=== PATIENT | female | born 1970 | race Caucasian/White ===

== ENCOUNTER → 2018-02-24 | Outpatient (CLI) | payer BC ==
[~2018-02-24] MED LIST: OXYACE5T PO; PROM25 PO; RANI150 PO; [UNRECOGNIZED DRUG - OTHER]; [UNRECOGNIZED DRUG - REMARK]
== END ==
LOC: LAB 15:15 → LAB SHORT 15:15
DX: N39.0 Urinary tract infection, site not specified (principal)
CPT/HCPCS: 87086

== ENCOUNTER → 2019-05-28 | Outpatient (CLI) | payer BC ==
[2019-05-29 13:41] LABS: Stool Occult Bld Immuno 1 Negative (NEGATIVE)
== END | disposition home or self-care (01) ==
LOC: LAB 11:41 → LAB SHORT 11:41 → LAB FUT 04-25 08:15
PROVIDERS: Family Medicine
DX: Z12.11 Encounter for screening for malignant neoplasm of colon (principal); E11.9 Type 2 diabetes mellitus without complications; I10 Essential (primary) hypertension; R79.9 Abnormal finding of blood chemistry, unspecified; R10.13 Epigastric pain
CPT/HCPCS: 87338; G0328

== ENCOUNTER 2021-12-26 22:27 | Observation (INO) | payer BC ==
[~2021-12-26] VITALS: Ht 170.2 cm; Wt 127.7 kg
[2021-12-26 23:10] LABS: BASOPHILS PERCENT AUTO 1 % (0-2); EOSINOPHILS ABSOLUTE AUTO 0.26 K/mm3 (0.00-0.68); EOSINOPHILS PERCENT AUTO 2 % (0-6); Hematocrit 48.6 % (33.0-51.0); Hemoglobin 16.5 g/dL (11.5-16.0); IMMATURE GRAN ABSOLUTE AUTO 0.06 K/mm3 (0.00-0.10); IMMATURE GRAN PERCENT AUTO 0 % (0-1); LYMPHOCYTES ABSOLUTE AUTO 4.94 K/mm3 (0.84-5.20); LYMPHOCYTES PERCENT AUTO 34 % (21-46); MONOCYTES ABSOLUTE AUTO 1.07 K/mm3 (0.16-1.47); MONOCYTES PERCENT AUTO 7 % (4-13); Mean Corpuscular HGB 30.5 pg (26.0-34.0); Mean Corpuscular Volume 90 fL (80-100); Mean Platelet Volume 9.3 fL (9.1-12.4); NEUTROPHILS ABSOLUTE AUTO 7.96 K/mm3 (1.96-9.15); NEUTROPHILS PERCENT AUTO 55 % (41-73); Platelet Count 360 K/mm3 (150-400); RDW Standard Deviation 42.8 fL (35.1-46.3); Red Blood Cell Count 5.41 M/mm3 (3.80-5.20); White Blood Cell Count 14.39 K/mm3 (4.00-11.30)
[2021-12-26 23:28] LABS: Magnesium, Blood 2.4 mg/dL (1.6-2.4)
[2021-12-26 23:39] LABS: Alanine Aminotransfer (ALT/SGP 31 U/L (12-78); Albumin, Blood 3.8 g/dL (3.4-5.0); Alk Phos 79 U/L (50-136); Anion Gap 7 mmol/L (6-16); Aspartate Aminotrans (AST/SGOT 16 U/L (12-37); Bilirubin, Direct <0.1 mg/dL (0.0-0.3); Bilirubin, Indirect Unable to Calculate mg/dL (0.1-0.7); Bilirubin, Total 0.3 mg/dL (0.1-1.0); Blood Urea Nitrogen 16 mg/dL (8-24); Bun/Creatinine Ratio 26.8 (12.0-20.0); CO2, Blood 21 mmol/L (21-32); Calcium, Blood 9.4 mg/dL (8.5-10.1); Chloride, Blood 109 mmol/L (98-108); Glomerular Filtration Rate 107 (60-); Glucose, Blood 165 mg/dL (70-99); Potassium, Blood 3.9 mmol/L (3.5-5.5); Sodium, Blood 137 mmol/L (136-145); Total Protein, Blood 7.8 g/dL (6.4-8.2)
[2021-12-27 03:25] LABS: Source, Urine Clean Catch
[2021-12-27 03:27] LABS: Appearance, Urine Clear (Clear); Bilirubin, Urine Neg (Neg); Blood, Urine Neg (Neg); Color, Urine Yellow (P-Yellow); Glucose Qualitative, Urine 4+ (Neg); Ketones, Urine Neg (Neg); Leukocyte Esterase, Urine Neg (Neg); Nitrite, Urine Neg (Neg); Protein, Urine Neg (Neg); Urobilinogen, Urine NORM (Normal)
[2021-12-27 07:33] LABS: CHOL/HDL RATIO 4.2; Cholesterol 174 mg/dL (50-200); HDL Cholesterol 41 mg/dL (>39); LDL/HDL RATIO 2.2; Low Density Lipoprotein Chol 90 mg/dL (0-110); Triglycerides 216 mg/dL (30-160); Very Low Density Lipoprot Chol 43 mg/dL (6-32)
[2021-12-27] MEDS ORDERED: PRAVASTATIN SOD10 MG PO (08:57)
[2021-12-27] MEDS ORDERED: TOPI25 PO (08:57)
[2021-12-27] MEDS ORDERED: EZET10 PO (08:59)
[2021-12-27] MEDS ORDERED: JARDIANCE25 MG PO (08:59)
[2021-12-27] MEDS ORDERED: Amaryl2 MG PO (09:00)
[2021-12-27] MEDS ORDERED: Amlodipine Bes2.5 MG PO (09:02)
--- NOTE | 2021-12-27 17:40 | NUR ---
SHIFT SUMMARY PT A&O X4 AND IN PLEASENT MOOD. SBA. HEADACHE MEDICATED PER EMAR. TOLERATING CLEAR LIQUID DIET, DENIES N/V, ABD PAIN-PLAN TO CONTINUE TO ADVANCE DAVID. VSS. CALL LIGHT W/IN REACH.
--- NOTE | 2021-12-28 05:29 | NUR ---
SHIFT SUMMARY NOC: PT SLEPT ALL NIGHT. USES CPAP AT NIGHT. PT STATES PAIN TO ABDOMEN IS MANAGEABLE. NO PRN MEDICATIONS GIVEN TONIGHT. NO ACUTE EVENTS.
[2021-12-28 05:35] LABS: BASOPHILS ABSOLUTE AUTO 0.07 K/mm3 (0.00-0.23); BASOPHILS PERCENT AUTO 1 % (0-2); EOSINOPHILS ABSOLUTE AUTO 0.21 K/mm3 (0.00-0.68); EOSINOPHILS PERCENT AUTO 2 % (0-6); Hematocrit 47.4 % (33.0-51.0); Hemoglobin 15.4 g/dL (11.5-16.0); IMMATURE GRAN ABSOLUTE AUTO 0.04 K/mm3 (0.00-0.10); IMMATURE GRAN PERCENT AUTO 0 % (0-1); LYMPHOCYTES ABSOLUTE AUTO 3.39 K/mm3 (0.84-5.20); LYMPHOCYTES PERCENT AUTO 35 % (21-46); MONOCYTES ABSOLUTE AUTO 0.71 K/mm3 (0.16-1.47); MONOCYTES PERCENT AUTO 7 % (4-13); Mean Corpuscular HGB 30.4 pg (26.0-34.0); Mean Corpuscular HGB Conc 32.5 g/dL (31.5-36.5); Mean Corpuscular Volume 94 fL (80-100); NEUTROPHILS ABSOLUTE AUTO 5.42 K/mm3 (1.96-9.15); NEUTROPHILS PERCENT AUTO 55 % (41-73); RDW Coefficient Variation 13.2 % (11.7-14.2); RDW Standard Deviation 44.7 fL (35.1-46.3); Red Blood Cell Count 5.07 M/mm3 (3.80-5.20); White Blood Cell Count 9.84 K/mm3 (4.00-11.30)
[2021-12-28 05:52] LABS: Albumin, Blood 3.1 g/dL (3.4-5.0); Albumin/Globulin Ratio 0.9 (0.8-1.8); Bilirubin, Total 0.5 mg/dL (0.1-1.0); Bun/Creatinine Ratio 20.7 (12.0-20.0); Calcium, Blood 8.7 mg/dL (8.5-10.1); Creatinine, Blood 0.58 mg/dL (0.40-1.00); Globulin, Blood 3.4 g/dL (2.2-4.0); Potassium, Blood 4.1 mmol/L (3.5-5.5); Total Protein, Blood 6.5 g/dL (6.4-8.2)
[2021-12-28 06:16] LABS: Mean Platelet Volume 9.8 fL (9.1-12.4); Platelet Count 240 K/mm3 (150-400)
--- NOTE | 2021-12-28 11:27 | NUR ---
PT HAS NO C/O PAIN OR NAUSEA AFTER EATING FULL LIQUID BREAKFAST. PT AGREED WITH POC TO ADVANCE DIET TO REGULAR CONSISTENCY DIET. ADA DIET WITH REGULAR TEXTURE ORDERED.
[2021-12-28] MEDS ORDERED: Norco 5-325 Ta1 EACH PO (11:44)
[2021-12-28] MEDS ORDERED: ONDA4ODT MM (11:44)
--- NOTE | 2021-12-28 17:21 | NUR ---
LATE ENTRY DISCHARGE SUMMARY: PT EDUCATED ON DISCHARGE INSTRUCTIONS AND MEDICATIONS. PT VU. PT PACKED UP BELONGINGS AND SHE WAS ESCORTED TO HER POV VIA AMBULATION WITHOUT ASSISTANCE. BELONGINGS SENT WITH PT. [facility] MEDICATION[facility] TO [facility] AND SENT WRITTEN SCRIPT WITH HER FOR PHILLIPS.
== END 2021-12-28 13:41 | disposition home or self-care (01) ==
LOC: ER 22:27 → MEDS 22:28
PROVIDERS: Student in an Organized Health Care Education/Training Program; ADMIT Internal Medicine
DX: K85.90 Acute pancreatitis without necrosis or infection, unspecified (principal); E86.0 Dehydration; I10 Essential (primary) hypertension; E78.5 Hyperlipidemia, unspecified; E11.9 Type 2 diabetes mellitus without complications; Z88.8 Allergy status to other drugs, medicaments and biological substances
CPT/HCPCS: 36415; 74177; 76705; 80048; 80053; 80061; 80076; 81003; 82947; 83605; 83690; 83735; 85025; 93005; 93010; 96365; 96375; 96376; 99285-25; A9270; G0378; J1650; J1885; J2270; J2405; J2543; J2765; J3010; J7030; J7120; Q9967

== ENCOUNTER → 2022-02-12 | Outpatient (CLI) | payer BC ==
[~2022-02-12] MED LIST changes: +Amaryl2 MG PO; +Amlodipine Bes2.5 MG PO; +EZET10 PO; +JARDIANCE25 MG PO; +Norco 5-325 Ta1 EACH PO; +ONDA4ODT MM; +PRAVASTATIN SOD10 MG PO; +TOPI25 PO
== END | disposition home or self-care (01) ==
LOC: LAB 15:13 → LAB SHORT 15:13
DX: N39.0 Urinary tract infection, site not specified (principal)
CPT/HCPCS: 87086

== ENCOUNTER → 2022-05-18 | Outpatient (CLI) | payer BC ==
[2022-05-18 17:55] LABS: Source, Urine Voided
[2022-05-18 19:11] LABS: Appearance, Urine Hazy (Clear); Bilirubin, Urine Neg (Neg); Blood, Urine 1+ (Neg); Color, Urine Yellow (P-Yellow); Glucose Qualitative, Urine Neg (Neg); Ketones, Urine Neg (Neg); Leukocyte Esterase, Urine Neg (Neg); Nitrite, Urine Neg (Neg); Protein, Urine Neg (Neg); Specific Gravity, Urine 1.025 (1.003-1.022); Urobilinogen, Urine NORM (Normal)
[2022-05-18 19:25] LABS: Bacteria Many /hpf; Mucus Light (0-Heavy); Red Blood Cells, Urine 0-2 /hpf (0-2); Squamous Epithelial Cells Many /hpf (Few); White Blood Cells, Urine 0-2 /hpf (0-5)
== END | disposition home or self-care (01) ==
LOC: LAB 17:53 → LAB SHORT 17:53
PROVIDERS: Family Medicine
DX: R82.90 Unspecified abnormal findings in urine (principal)
CPT/HCPCS: 81001